=== PATIENT | male | born 1995 | race Caucasian/White ===

== ENCOUNTER 2020-06-13 06:44 | Emergency (ER) | payer OTHER ==
[~2020-06-13] VITALS: Ht 180.3 cm; Wt 75.0 kg
[2020-06-13] MEDS ORDERED: BOOSTRIX/ADACEL VACCINE (DIPHTH/PERTUSS/ACELL/TETANUS) 0.5ML SYR IM ONE (07:15)
[2020-06-13] MEDS ORDERED: KEFL500C17 PO (08:33)
[2020-06-13] MEDS ORDERED: LEVA750T7 PO (08:33)
[2020-06-13 08:40] VITALS: BP 124/72
--- NOTE | 2020-07-11 09:39 | REP ---
RIGHT SECOND TOE SERIES: CLINICAL: Right second toe injury. TECHNIQUE: AP, lateral, bilateral oblique views FINDINGS: The lateral view best demonstrates a subtle nondisplaced fracture at the base of the second toe distal phalanx. Overlying soft tissue swelling. The remainder of the examination is normal. IMPRESSION: Subtle nondisplaced corner fracture at the base of the second toe distal phalanx. MTDD
== END 2020-06-13 08:41 | disposition home or self-care (01) ==
LOC: M ED 06:44
DX: S92.411B Displaced fracture of proximal phalanx of right great toe, initial encounter for open fracture (principal); W26.8XXA Contact with other sharp object(s), not elsewhere classified, initial encounter; Y92.9 Unspecified place or not applicable; Y93.16 Activity, rowing, canoeing, kayaking, rafting and tubing; Y99.9 Unspecified external cause status; F17.200 Nicotine dependence, unspecified, uncomplicated; Z79.899 Other long term (current) drug therapy

== ENCOUNTER 2020-09-25 14:40 | Emergency (ER) | payer OTHER ==
[~2020-09-25] VITALS: Ht 175.3 cm; Wt 81.1 kg
[2020-09-25 14:40] VITALS: BP 117/70
[~2020-09-25 14:40] MED LIST: KEFL500C17 PO; LEVA750T7 PO
--- NOTE | 2020-09-25 15:46 | REP ---
INDICATION: trauma COMPARISON: None. TECHNIQUE: Four views left hand obtained. FINDINGS: On the AP view there is lucency in the mid scaphoid which may represent a nondisplaced fracture. I see no other evidence of acute fracture, dislocation or intrinsic bone disease. IMPRESSION: Possible nondisplaced fracture mid scaphoid. <Electronically signed by Ravin Reilly > 09/25/20 [id number]
== END 2020-09-25 16:40 | disposition home or self-care (01) ==
LOC: M ED 14:40
DX: F43.0 Acute stress reaction (principal); S69.92XA Unspecified injury of left wrist, hand and finger(s), initial encounter; X58.XXXA Exposure to other specified factors, initial encounter; Y92.9 Unspecified place or not applicable; Y93.9 Activity, unspecified; Y99.9 Unspecified external cause status; F17.200 Nicotine dependence, unspecified, uncomplicated

== ENCOUNTER → 2023-11-06 | Outpatient (REF) | payer OTHER, SELFPAY | LOC: M PLAIMG 11:33 → EDSTATUS 01-03 19:19 | PROVIDERS: ATTEND Nurse Practitioner Family | DX: M54.2 Cervicalgia (principal); Z87.39 Personal history of other diseases of the musculoskeletal system and connective tissue; M25.461 Effusion, right knee; M25.861 Other specified joint disorders, right knee ==